=== PATIENT | male | born 1940 | race Caucasian/White ===

== ENCOUNTER 2017-01-15 14:25 | Inpatient (IN) | payer MEDICARE, OTHER ==
[~2017-01-15] VITALS: Ht 182.9 cm; Wt 97.4 kg
--- NOTE | ~2017-01-15 | CON ---
PATIENT'S NAME: CONSTANZA MOTT [facility] AGE: 76 Y [address] ROOM: [place] [address] LOCATION: [facility] ADMIT DATE: 01/15/2017 Consultation DISCHARGE DATE: FAMILY PHYSICIAN: Quintin Hawkins MD ATTENDING PHYSICIAN: Lana NICHOLAS REFERRING PHYSICIAN: MARCO A CASTELLON MD ORTHOPEDIC CONSULTATION CHIEF COMPLAINT: Left hip and groin pain. HISTORY OF PRESENT ILLNESS: Mr. Mott is a pleasant 76-year-old gentleman, who presents after a fall from a step stool at home, complaining of left hip and groin pain. The patient reports he was reaching for some objects from a cabinet overhead. He removed approximately half the objects and inadvertently lost balance and fell onto his left side. He denies any loss of consciousness or dizziness. At that time, he was unable to get up. He reported immediate pain and discomfort in left hip and groin. Aggravating factors included attempting to stand, manipulation of the limb, or movement of the hip. Alleviating factors include rest, ice, elevation, and immobilization. He was brought to the Emergency Room here at [facility], and he was seen and evaluated. He was diagnosed with a left hip fracture. I was consulted by Dr. Castellon, another orthopedic surgeon, for definitive orthopedic care. Currently, the patient denies any constitutional symptoms such as fever, chills, night sweats. He also denies any dizziness, chest pain, shortness of breath, blurred vision, nausea, vomiting, or diarrhea. The patient otherwise reports that he is in fairly good health. REVIEW OF SYSTEMS: A 10-point review of system otherwise mentioned above in the HPI. The rest is negative. PAST MEDICAL HISTORY: Includes a benign prostatic hyperplasia, hypertension, hypercholesterolemia, COPD. PAST SURGICAL HISTORY: None. SOCIAL HISTORY: The patient denies any alcohol, tobacco, or illicit drug use. He lives at home with his . He is an independent ambulator at baseline. The patient had a history of one pack per day smoker for 40 years. He quit approximately 10 years ago. PATIENT'S NAME: CONSTANZA MOTT [facility] AGE: 76 Y [address] ROOM: [place] [address] LOCATION: [facility] ADMIT DATE: 01/15/2017 Consultation DISCHARGE DATE: FAMILY PHYSICIAN: Quintin Hawkins MD ATTENDING PHYSICIAN: Lana NICHOLAS FAMILY HISTORY: Includes hypertension and hypercholesterolemia on both sides of his family. ALLERGIES: NO KNOWN DRUG ALLERGIES. MEDICATIONS: 1. A cholesterol medication. 2. A blood pressure pill. PHYSICAL EXAMINATION: VITAL SIGNS: The patient is 6 feet tall, weighs 77.3 kg, blood pressure is 153/72, pulse 70, respiratory rate 16, temperature is 96.9, SpO2 of 94% on room air. GENERAL: The patient is awake, alert, and oriented x3. He is in no acute distress. He is actively conversing with me at the bedside. HEENT: Normocephalic and atraumatic. Extraocular movements are intact. PERRLA. Moist mucous membranes. Oropharyngeal airway is clear. NECK: Supple. Trachea is in the midline. CARDIOVASCULAR: Regular rate and rhythm. CHEST: Normal symmetric respirations observed bilaterally. ABDOMEN: Soft, nontender, nondistended. SKIN: Dry. MUSCULOSKELETAL: Left lower extremity: Focal examination of the patient's left lower extremity reveals that he is grossly neurologically intact distally. Compartments of thigh, leg, and foot are soft. There is palpable dorsalis pedal and posterior tibial pulses. There is good capillary refill in the toes. The patient is actively able to dorsiflex and plantar flex the ankle. The left lower extremity is shortened and externally rotated compared to the contralateral limb. There is a positive log roll test on this side. LABORATORY DATA: CBC was performed and hemoglobin is 13.1, hematocrit is 40, white blood cell count is 4.2, and platelet count is 144. A chemistry-7 reveals sodium 141, potassium 4.2, chloride 106, CO2 of 30, BUN of 22, creatinine 1.3, glucose of 166. Coagulation profile reveals a PT of 10.5, INR of 1.0, and PTT of 25. IMAGING: Plain radiographs of the left hip reveal evidence of a displaced femoral neck fracture. A subsequent CT scan of the abdomen and pelvis reveals evidence of a displaced fracture of the left femoral neck. IMPRESSION: Left displaced fracture of the femoral neck. PATIENT'S NAME: CONSTANZA MOTT [facility] AGE: 76 Y [address] ROOM: [place] [id number] LOCATION: [facility] ADMIT DATE: 01/15/2017 Consultation DISCHARGE DATE: FAMILY PHYSICIAN: Quintin Hawkins MD ATTENDING PHYSICIAN: Lana NICHOLAS PLAN: I had a long discussion with the patient regarding his left hip. He sustained a hip fracture. I am recommending a left hip hemiarthroplasty procedure. I have discussed the risks, benefits, and alternatives pursuing surgical intervention with the patient in detail. I have discussed the risks of anesthesia, infection, bleeding, and/or injury to neurovascular structures. The patient will be bedrest for now. We will make every effort to control his pain overnight. We will hold DVT prophylaxis, may be mechanical prophylaxis for now. We will hold Ancef inspector balance wheel motion for the OR. We will ask the Hospitalist to clear the patient medically in preparation for surgery tomorrow. I have answered all the patient and the patient's family's questions today at the bedside to their satisfaction. MD ISABEL KAISER/modl /[id number] d: 01/15/17 2317 t: 01/16/17 0741, CONSULTATION REPORT
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
--- NOTE | ~2017-01-15 | DS ---
PATIENT'S NAME: TIERA [facility] AGE: 76 Y [address] ROOM: [place] [address] LOCATION: [facility] ADMIT DATE: 01/15/2017 Discharge Summary DISCHARGE DATE: 01/20/2017 FAMILY PHYSICIAN: Quintin Hawkins MD ATTENDING PHYSICIAN: Lana Wu DISCHARGE DIAGNOSES: 1. Left displaced femoral neck fracture. 2. Chronic obstructive pulmonary disease. 3. Essential hypertension. 4. Benign prostatic hyperplasia. PRINCIPLE PROCEDURE: Left hip hemiarthrosis by Dr. Richard on 01/16/2017. REASON FOR ADMISSION: Hip fracture and pain. VITALS: White count, hemoglobin, and platelets were normal preoperatively. His hemoglobin did not drop below 11.8. His urine was benign. Electrolytes showed normal sodium and potassium. BUN and creatinine were normal and actually better before he left than when he arrived. X-ray showed a complete oblique fracture with slight bone displacement at the inferior aspect of the left femoral neck. Chest x-ray showed emphysematous change in the lungs, scarring and fibrosis with aortic atherosclerosis. He had proximal pulmonary artery prominence suggesting pulmonary hypertension. X- ray postop showed a well-positioned intact left hip arthroplasty. HOSPITAL COURSE: This is one of steady improvement. He is transferred to a [facility]. Has one assist with a walker. He is to get OT and PT there for strengthening and gait training. MEDICATIONS: Per med nursing recon form. DIET: Ad liv. ACTIVITY: Per PT and OT. FOLLOWUP: With Dr. Hawkins in 1 to [address] Richard per Dr. Richard. Note that discharge preparations took greater than 30 minutes. ISREAL COVINGTON MD [facility] AGE: 76 Y [address] ROOM: [place] [address] LOCATION: [facility] ADMIT DATE: 01/15/2017 Discharge Summary DISCHARGE DATE: 01/20/2017 FAMILY PHYSICIAN: Quintin Hawkins MD ATTENDING PHYSICIAN: Lana Wu CCJ/modl /[id number] d: 01/30/17937 t: 02/01/17 1739, DISCHARGE SUMMARY
--- NOTE | ~2017-01-15 | OR ---
PATIENT'S NAME: TIERA [facility] AGE: 76 Y [address] ROOM: [place] [address] LOCATION: [facility] ADMIT DATE: 01/15/2017 OR/Procedure Report DISCHARGE DATE: FAMILY PHYSICIAN: Quintin Hawkins MD ATTENDING PHYSICIAN: Lana NICHOLAS SURGEON: David Richard MD FINANCIAL REPORT SERVICE SALES AGENT: Malik Garrett PA-C DATE OF PROCEDURE: 01/16/2017 PREOPERATIVE DIAGNOSIS: Left displaced femoral neck fracture. POSTOPERATIVE DIAGNOSIS: Left displaced femoral neck fracture. PROCEDURE PERFORMED: Left hip hemiarthroplasty. ANESTHESIA: Spinal anesthesia. FLUIDS: See Anesthesia report. ESTIMATED BLOOD LOSS: 150 mL. SPECIMENS: None. COMPLICATIONS: None. DISPOSITION: Stable, in PACU. COUNTS: All counts were correct. IMPLANTS: Kike left hip hemiarthroplasty system with a size 8 Accolade II stem; size 28, 0 offset femoral head; and size 53 mm outer diameter bipolar component. INDICATIONS: Mr. Mott is a pleasant 76-year-old gentleman who underwent the noted procedure above. The risks, benefits, and alternatives to pursuing surgical intervention were discussed with the patient and his family in detail. He elected to proceed with surgery. Anesthesia was consulted for their perioperative evaluation of the patient. I marked the left hip, indicating the correct surgical site. DESCRIPTION OF PROCEDURE: The patient was brought from the holding area to the operating room. A time-out was performed. The patient was positioned in the right lateral decubitus position with the left hip exposed. The left lower extremity was then prepped and draped in a sterile fashion. PATIENT'S NAME: TIERA [facility] AGE: 76 Y [address] ROOM: [place] [id number] LOCATION: [facility] ADMIT DATE: 01/15/2017 OR/Procedure Report DISCHARGE DATE: FAMILY PHYSICIAN: Quintin Hawkins MD ATTENDING PHYSICIAN: Lana NICHOLAS Preoperative antibiotics were administered for perioperative prophylaxis. A final time-out was performed. A posterior incision to access the hip was made using a 15 blade knife. I dissected through skin and subcutaneous tissue. I identified the fascia. I sharply incised the fascia and retracted using a Charnley retractor. Using a Bovie electrocautery device, I removed the posterior capsule and short external rotators in the posterior aspect of the greater trochanter. I tagged them with Ethibond suture to reattach later. I identified the fracture site. I reduced the template to make my femoral neck cut. The fracture was transcervical in nature, though it extended to just proximal to the level of the lesser trochanter. I used an oscillating saw to perform my femoral neck cut. I then used a corkscrew to remove the femoral head and sized it. I used a femoral canal finder to cannulate the intramedullary canal. I then sequentially broached up to a size 8 femur. I trialed off this. All the trial componentry was subsequently removed, and the wound was then copiously irrigated with a normal sterile saline solution via pulsatile lavage. I then placed my final femoral component. I then placed my inner head and bipolar head. With my physician surgical dental assistant assisting with the reduction maneuver, I reduced the hip. The hip was taken through range of motion. I achieved full extension to approximately 140 degrees of hip flexion and 60 degrees of internal rotation prior to surgical dislocation. I measured the limb lengths and found them to be equal. I then reattached the short external rotators and posterior capsule by a bone tunnel that was drilled, and the Ethibond suture was placed, and I closed over this. I then repaired them to the posterior aspect of the greater trochanter. The hip again was taken through range of motion and deemed stable. I then closed the capsule using a #2 Stratafix barbed suture to approximate the fascia. I then used 0 Stratafix suture to approximate the deeper subcutaneous tissue, followed by 0 and 2-0 Vicryl sutures to approximate the subcutaneous tissue and dermis, followed by Prineo to approximate the skin. A sterile Mepilex dressing was placed on the hip. The patient was then transferred from the operating table onto the hospital bed. An abduction pillow was placed between the legs. He was brought to the recovery room in stable condition. There were no intraoperative complications noted. Of note, my PA, Malik Garrett PA-C, played an integral role in the intraoperative care of this patient. This included preoperative positioning, PATIENT'S NAME: CONSTANZA MOTT [facility] AGE: 76 Y [address] [address] LOCATION: [facility] ADMIT DATE: 01/15/2017 OR/Procedure Report DISCHARGE DATE: FAMILY PHYSICIAN: Quintin Hawkins MD ATTENDING PHYSICIAN: Lana NICHOLAS intraoperative expert retraction, and closing and dressing functions. IMPRESSION: The patient is status post the noted procedure above. PLAN: The patient will be weightbearing as tolerated on the left lower extremity with hip flexion precautions to 90 degrees. Postoperative pain control will be as ordered. DVT prophylaxis will be in the form of Lovenox. Postoperative antibiotics will be ordered per routine. The Hospitalist and Pulmonology Service will continue to manage the patient's concomitant medical comorbidities. Physical Therapy and Occupational Therapy will be consulted for early ambulation and prevention of deconditioning. I will continue to follow the patient closely in the postoperative period. MD ISABEL KAISER/modl /[id number] d: 01/16/17 1327 t: 01/16/17 1431, OPERATIVE SUMMARY
--- NOTE | ~2017-01-15 | PUL ---
PATIENT'S NAME: CONSTANZA MOTT [facility] AGE: 76 Y [address] ROOM: [address] [address] LOCATION: [facility] ADMIT DATE: 01/15/2017 Pulmonary DISCHARGE DATE: 01/20/2017 FAMILY PHYSICIAN: Quintin Hawkins MD ATTENDING PHYSICIAN: Lana Wu NAME OF PROCEDURE: Overnight Pulse Oximetry DATE OF PROCEDURE: January 17, 2017 REASON FOR EXAM: Nocturnal hypoxemia RESULTS: The test was performed on room air. The recording time was 9 hours, 21 minutes, and 52 seconds.; the total valid sampling was to same. The highest pulse was 97, lowest pulse was 57 with a mean pulse of 72. The highest SpO2 was 96%, lowest SpO2 was 81% with a mean SpO2 of 90.1%. The patient had saturation below 88% for a total of 12 minutes. The desaturation event index was 6.6. PHYSICIAN INTERPRETATION: The patient has evidence of significant nocturnal hypoxia and would qualify for supplemental oxygen as per Medicare criteria. Sleep study would be recommended if clinically indicated. MD WM MYERS/jaiden /[id number] dtt: 01/31/17 1741 , KENDALL KOEHLER dtd: 01/25/17 0816
--- NOTE | ~2017-01-15 | HP ---
PATIENT'S NAME: TIERA [facility] AGE: 76 Y [address] ROOM: [place] [id number] LOCATION: [facility] ADMIT DATE: 01/15/2017 History & Physical DISCHARGE DATE: FAMILY PHYSICIAN: Quintin Hawkins MD ATTENDING PHYSICIAN: Lana NICHOLAS DATE OF SERVICE: CHIEF COMPLAINT: Left hip fracture. HISTORY OF PRESENT ILLNESS: The patient is a 76-year-old gentleman with past medical history of hypertension, COPD, and BPH who presents here with left hip fracture status post mechanical fall. The patient reports that he was using a step stool to get some article from the cupboard when he accidentally missed the step and experienced a fall. The patient reports that he could not stand up and walk. EMS was called and he was brought in for further evaluation. The patient denies any dizziness, shortness of breath, chest pain, or palpitation during this event and reports that this is due to his misstep. The patient has a history of COPD and stopped smoking 10 years ago. The patient reports that he gets dyspnea on exertion when he exerts himself. However, he denies orthopnea, chest pain, palpitation, productive cough, fever, chills, nausea, and vomiting. The patient reports that he has a history of lightheadedness in the past and was seen by a primary care physician for that and thinks that this is secondary to his medications use especially his beta-samir. However, currently he denies any other dizziness or dizziness prior to his fall. MEDICAL HISTORY: COPD, BPH, hypertension. SURGICAL HISTORY: 1. Left kidney nephrectomy status post trauma. 2. Cholecystectomy. 3. Colovesicular fistula repair. FAMILY HISTORY: Mother had colon cancer. Father had history of heart disease. SOCIAL HISTORY: He stopped smoking 10 years ago. PATIENT'S NAME: [facility] AGE: 76 Y [address] ROOM: [address] [address] LOCATION: [facility] ADMIT DATE: 01/15/2017 History & Physical DISCHARGE DATE: FAMILY PHYSICIAN: Quintin Hawkins MD ATTENDING PHYSICIAN: Lana NICHOLAS Reports that he drinks 1 or 2 glasses of whiskey or bourbon during night. Denies any history of withdrawal symptoms. MEDICATIONS: 1. Propranolol extended release 120 mg p.o. daily. 2. Pravastatin 80 mg p.o. daily. 3. Flomax 0.4 mg p.o. daily. 4. Proscar 5 mg p.o. daily. REVIEW OF SYSTEMS: All systems have been reviewed and are negative except for what I mentioned in the HPI. PHYSICAL EXAMINATION: VITAL SIGNS: Temperature 97.3, blood pressure 153/72, heart rate of 70, respiratory rate 16, and saturating 94% on room air. GENERAL APPEARANCE: The patient is alert and awake, in no acute distress. EYES: Extraocular muscle intact. NOSE: No nasal discharge. HEAD: Normocephalic, atraumatic. EARS: No ear discharge. MOUTH: Moist oral mucosa. CHEST: Clear to auscultation bilaterally. HEART: Regular rate and rhythm. No murmurs, rubs, or gallops. ABDOMEN: Soft, nontender, and nondistended. Bowel sounds present. SKIN: Warm to touch. MILLWRIGHT APPRENTICE: The patient alert and awake. Motor and sensory grossly intact. LABORATORY DATA: White blood cell 4.2, hemoglobin 13.1, platelet of 144. BUN of 22, creatinine of 1.3. Sodium of 141, potassium of 4.2, calcium of 8.8. INR of 1. IMAGING DATA: EKG shows normal sinus rhythm with T wave inversion in I, aVL, and ST changes with mild depression from V4 to V6. ASSESSMENT AND PLAN: 1. Left hip fracture secondary to mechanical fall. The patient has a history of some dyspnea on exertion and EKG showing possible lateral ischemic ST changes. Thus, due to these findings, we will consult Cardiology. We will acquire echocardiogram for further investigation. I discussed the case with Dr. Bone with Cardiology. The patient to be seen by Cardiology. We will continue patient's propranolol and statin. PATIENT'S NAME: CONSTANZA MOTT [facility] AGE: 76 Y [address] ROOM: [id number] [place] [id number] LOCATION: [facility] ADMIT DATE: 01/15/2017 History & Physical DISCHARGE DATE: FAMILY PHYSICIAN: Quintin Hawkins MD ATTENDING PHYSICIAN: Lana NICHOLAS Also, discussed with Dr. Cruz who is the orthopedic who will be seeing the patient once the patient is cleared from a cardiac standpoint. 2. Chronic obstructive pulmonary disease, stable. To have DuoNeb as needed. 3. Hypertension, stable. Continue medication. 4. 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 Creatinine 1.3. 5. BPH. Continue Proscar and Flomax. Greater than 70 minutes was spent on patient care. Greater than 50% of the time spent on direct patient care. Case was discussed with Dr. Cruz and Dr. Bone. Code status discussed on admission. Code status full code. BERNADETTEWE MD DAVEY NICHOLAS/oniel /[id number] D: T: [id number] HISTORY & PHYSICAL
--- NOTE | ~2017-01-15 | ECHO ---
Transthoracic Echocardiography Report (TTE) Demographics Patient Name CONSTANZA MOTT Date of Study 01/15/2017 Patient Number [id number] Visit Number [id number] Date of 1940 Room Number G3314 Accession Number [id number] Gender Male Age 76 year(s) Referring Ross Smith Stone Derrickman And Rigger Physician MD Michael Stone MD Physician Interpreting Lizandro Garg MD Sybase Developer Physician Supervising Ordering Physician Michael Stone MD, MD/P Nurse Stress Weight And Test Bar Clerk Conclusions Contractility Score Summary Normal Left Ventricular contractility was noted. Summary The estimated left ventricular ejection fraction is 55-60%. Mild concentric left ventricular hypertrophy. Diastolic assessment reveals Grade II pseudonormal diastolic function . Mildly dilated right ventricle. The right atrium is mildly dilated. Mild calcification of the mitral valve. The aortic valve is mildly sclerotic. There is moderate aortic regurgitation by color Doppler. Procedure Type of Study TTE procedure:2D Echocardiogram. Procedure Date Date: 01/15/2017 Start: 04:39 PM Study Location: ER Technical Quality: Adequate visualization Indications:Preop cardiac evaluation. Appropriate Use Criteria: 9 Patient Status: STAT HR: 73 bpm BP: 170/76 mmHg M-Mode/2D Measurements LV Diastolic Dimension: 4.86 cm LV Systolic Dimension: 2.81 cm LV Septum Diastolic: 1.5 cm LV PW Diastolic: 1.21 cm AO Root Dimension: 3 cm Cardiac Output: 4.15 l/min AV Cusp Separation: 1.3 cm RV Diastolic Dimension: 2.4 cm LA Dimension: 2.6 cm LVOT: 2 cm RV Base: 2.8 cm LVOT VTI: 18.1 cm RV Mid: 3.67 cm LV Stroke volume: 56.83 ml RV Length: 5.7 cm TAPSE: 2.23 cm TDI-S': 14.8 cm/s Doppler Measurements AV Peak Velocity: 1.14 m/s MV Peak E-Wave: 1.04 m/s AV Peak Gradient: 5.2 mmHg MV Peak A-Wave: 0.62 m/s AV Mean Gradient: 3 mmHg MV E/A Ratio: 1.69 LVOT Peak Velocity: 0.87 m/s MV P1/2t: 67 msec AV P1/2t: 474 msec PV Peak Velocity: 0.87 m/s E' Septal Velocity: 0.04 m/s PV Peak Gradient: 3.01 mmHg E' Lateral Velocity: 0.03 m/s A' Septal Velocity: 0.11 m/s A' Lateral Velocity: 0.12 m/s Findings Left Ventricle Mild concentric left ventricular hypertrophy. Right Ventricle Mildly dilated right ventricle. Left Atrium Normal left atrial size. Right Atrium The right atrium is mildly dilated. IVC measures 1.16 cm with inspiratory collapse. Mitral Valve Mild calcification of the mitral valve. Aortic Valve The aortic valve is mildly sclerotic. There is moderate aortic regurgitation by color Doppler. Tricuspid Valve Normal tricuspid valve structure and function. Pulmonic Valve Normal pulmonic valve structure and function. Pericardial Effusion No evidence of pericardial effusion. Miscellaneous Visualized portions of the aortic root and ascending aorta appear normal in size. Pleural Effusion No evidence of pleural effusion. Contractility Score LV regional wall motion:(0-Non visualized 1-Normal 2-Hypokinesis 3-Akinesis 4-Dyskinesis 5-Aneurysm) Signature dtt: [place] Bone (cardio) dtd: 01/15/17 1639 Physician Self Edit
--- NOTE | ~2017-01-15 | ER ---
[facility] AGE: 76 Y [address] ROOM: [place] [address] LOCATION: [facility] ADMIT DATE: 01/15/2017 ER/Outpatient Report DISCHARGE DATE: FAMILY PHYSICIAN: Quintin Hawkins MD ATTENDING PHYSICIAN: Lana WU Time of Arrival: 1424 hours. Time of Evaluation: 1424 hours. CHIEF COMPLAINT: Left hip pain. HISTORY OF PRESENT ILLNESS: The patient is a 76-year-old male, who presents to the emergency department today with a chief complaint of left hip pain. He reports he fell about 1 to 2 steps as he was up on the step stool trying to put on object overhead. He landed on a carpeted floor on his left side. He is unable to walk. He denies any head injury. No loss of consciousness. Denies any neck or back pain. No headache. The patient's pain is currently 3/10 in severity. It is sharp. It is worse with movement. PAST MEDICAL HISTORY: COPD, hypertension, BPH. PAST SURGICAL HISTORY: Laparoscopic sigmoid colectomy. SOCIAL HISTORY: The patient smoked one pack per day for 40 years. Quit 10 years ago. Denies any alcohol or illicit drug use. ALLERGIES: NO KNOWN DRUG ALLERGIES. MEDICATIONS: Please see list. PRIMARY CARE DOCTOR: Dr. Hawkins. REVIEW OF SYSTEMS: All systems are reviewed by myself and are negative with the exception of those discussed in the HPI and past medical history. PHYSICAL EXAMINATION: PATIENT'S NAME: [facility] AGE: 76 Y [address] ROOM: [place] [address] LOCATION: [facility] ADMIT DATE: 01/15/2017 ER/Outpatient Report DISCHARGE DATE: FAMILY PHYSICIAN: Quintin Hawkins MD ATTENDING PHYSICIAN: Lana WU VITAL SIGNS: Weight 97.3 kg, blood pressure 153/72, pulse 70, respiratory rate 16, temperature 96.9, oxygen saturation 94% on room air. GENERAL: The patient is a 76-year-old male, who appears stated age, in no acute distress at this time. HEENT: Normocephalic, atraumatic. Pupils are equal, round, and reactive to light. NECK: Supple. There is no nuchal rigidity. CARDIOVASCULAR: Regular rate and rhythm. No murmurs, rubs, or gallops. LUNGS: Clear to auscultation bilaterally. No wheezes, rales, or rhonchi. ABDOMEN: Soft, nontender, and nondistended. No rebound, rigidity, or guarding. MUSCULOSKELETAL: The patient has tenderness to palpation of left hip. He is able to wiggle his toes. Sensation is intact. 2/4 pulses DP and PT, which are equal bilaterally. SKIN: Warm and dry. LABORATORY DATA AND X-RAYS: A 2-view x-ray of the left hip as well as pelvis obtained does reveal a femoral neck fracture of the left. Chest x-ray shows no acute process. EKG is obtained, is interpreted by myself at 1511 hours shows sinus rhythm with a rate of 70, normal axis, normal intervals. No ST elevation, ST depression. There are some nonspecific T-wave inversions. CBC is unremarkable. Coags are normal. Renal panel is unremarkable. Prealbumin is 28. IMPRESSION: 1. Acute closed left femoral neck fracture. 2. Initial visit. COURSE: The patient was brought was back to the examination room. Seen and evaluated by myself. An IV is established. Laboratory analysis and imaging are obtained as described above. The patient refused any pain medicine at this time. I have discussed the results with the patient. I have contacted Dr. Cruz with Orthopedic Surgery. He has requested hospitalist admission. I have discussed the case with Dr. Wu, who does agree to accept the patient for further evaluation, treatment, and management. DISPOSITION: The patient is admitted under the care of the Hospitalist Service in conjunction with Dr. Cruz for Orthopedic Surgery in stable condition. KELLI REYES DO PATIENT'S NAME: CONSTANZA MOTT [facility] AGE: 76 Y [address] ROOM: [address] [place] [id number] LOCATION: [facility] ADMIT DATE: 01/15/2017 ER/Outpatient Report DISCHARGE DATE: FAMILY PHYSICIAN: Quintin Hawkins MD ATTENDING PHYSICIAN: Lana WU/jamirl /[id number] d: 01/15/172104 t: 01/16/1709, OUTPATIENT REPORT
[2017-01-15 15:07] LABS: BASOPHIL % 0.2 %; EOSINOPHIL # 0.1 K/uL (0.0-0.5); EOSINOPHIL % 3.3 %; HEMOGLOBIN 13.1 g/dL (11.0-16.0); IMMATURE GRANULOCYTE % 0.5 %; LYMPHOCYTE # 0.9 K/uL (0.8-4.0); LYMPHOCYTE % 20.5 %; MCH 30.6 pg (27.0-34.0); MCHC 32.8 gm/dL (32.0-36.5); MCV 93.5 fl (83.0-98.0); MONOCYTE # 0.2 K/uL (0.0-1.0); MONOCYTE % 4.1 %; MPV 9.9 fl (9.4-12.4); NEUTROPHIL % 71.4 %; NRBC % 0 /100WBC (0-0.00); PLATELET COUNT 144 K/uL (150-450); RBC 4.28 M/uL (3.50-5.50); RDW-CV 12.6 % (11.9-14.6); WBC 4.2 K/uL (4.0-11.0)
[2017-01-15 15:20] LABS: PROTIME 10.5 SECONDS (9.8-11.4); PTT 25 SECONDS (25-32)
[2017-01-15 15:24] LABS: ALBUMIN 3.2 gm/dL (3.5-5.0); ANION GAP 9.2 (10.0-19.0); CALCIUM 8.8 mg/dL (8.5-10.5); CREATININE 1.3 mg/dL (0.6-1.3); PHOSPHORUS 2.3 mg/dL (2.5-4.9); POTASSIUM 4.2 mMol/L (3.7-5.1)
[2017-01-15 16:01] LABS: BILIRUBIN URINE NEGATIVE (NEGATIVE); BLOOD URINE NEGATIVE /UL (NEGATIVE); COLOR URINE YELLOW (YELLOW); GLUCOSE URINE NEGATIVE (NEGATIVE); KETONE URINE NEGATIVE (NEGATIVE); LEUKOCYTES URINE 25 /UL (NEGATIVE); NITRITE URINE NEGATIVE (NEGATIVE); PH URINE 6.5 (4.0-8.0); PROTEIN URINE 30 mg/dL (NEGATIVE); SPEC GRAVITY URINE 1.015 (1.003-1.035); TURBIDITY URINE CLEAR (CLEAR); UROBILINOGEN URINE 1 mg/dL (NORMAL)
[2017-01-15 16:10] LABS: AMORPHOUS URINE 1+ (NEGATIVE); BACTERIA URINE NEGATIVE (NEGATIVE); EPITHELIAL URINE 0-2 #/HPF (NEGATIVE); RBC URINE RARE #/HPF (NEGATIVE); WBC URINE 0-2 #/HPF (NEGATIVE)
[2017-01-15 21:21] LABS: BILIRUBIN URINE NEGATIVE (NEGATIVE); BLOOD URINE NEGATIVE /UL (NEGATIVE); COLOR URINE YELLOW (YELLOW); GLUCOSE URINE NEGATIVE (NEGATIVE); KETONE URINE NEGATIVE (NEGATIVE); LEUKOCYTES URINE NEGATIVE /UL (NEGATIVE); NITRITE URINE NEGATIVE (NEGATIVE); PH URINE 6.5 (4.0-8.0); PROTEIN URINE NEGATIVE (NEGATIVE); TURBIDITY URINE CLEAR (CLEAR); UROBILINOGEN URINE NORMAL (NORMAL)
[2017-01-16 04:41] LABS: ANION GAP 10.2 (10.0-19.0); CALCIUM 8.7 mg/dL (8.5-10.5); CREATININE 1.1 mg/dL (0.6-1.3); POTASSIUM 4.2 mMol/L (3.7-5.1); TOTAL BILIRUBIN 0.5 mg/dL (0.0-1.5); TOTAL PROTEIN 6.1 g/dL (6.0-8.4)
[2017-01-17 05:40] LABS: HEMATOCRIT 36.8 % (37.0-53.0); HEMOGLOBIN 12.3 g/dL (11.0-16.0)
[2017-01-18 05:25] LABS: HEMATOCRIT 35.9 % (37.0-53.0); HEMOGLOBIN 11.8 g/dL (11.0-16.0)
== END 2017-01-20 14:00 | DRG 470 ==
LOC: GACC 14:25 → G3N 16:57
PROVIDERS: Emergency Medicine; Orthopaedic Surgery Adult Reconstructive Orthopaedic Surgery; ADMIT Internal Medicine
PROC: 0SRS01Z Replacement of Left Hip Joint, Femoral Surface with Metal Synthetic Substitute, Open Approach (ICD-10-PCS; principal; 2017-01-16)
DX: S72.002A Fracture of unspecified part of neck of left femur, initial encounter for closed fracture (principal); J44.9 Chronic obstructive pulmonary disease, unspecified; N40.0 Benign prostatic hyperplasia without lower urinary tract symptoms; W17.89XA Other fall from one level to another, initial encounter; Z86.39 Personal history of other endocrine, nutritional and metabolic disease; Z87.891 Personal history of nicotine dependence; I12.9 Hypertensive chronic kidney disease with stage 1 through stage 4 chronic kidney disease, or unspecified chronic kidney disease; N18.9 Chronic kidney disease, unspecified; Z90.5 Acquired absence of kidney; E78.00 Pure hypercholesterolemia, unspecified
CPT/HCPCS: C1776; J0690; J1650; J2250; J2270; J2405; J7030; J7050

== ENCOUNTER → 2017-01-15 | Outpatient (CLI) | payer MEDICARE, OTHER ==
[~2017-01-15] MED LIST: ASPIRIN325 MG PO; BACTRIM DS1 TAB PO; FLOMAX0.4 MG PO; INDERAL XL120 MG PO; NORCO 5-325 MG1 TAB PO; PRAVASTATIN SOD80 MG PO; PROSCAR5 MG PO
== END | disposition disaster alternative care site (69) ==
LOC: GAMB 14:03
DX: S79.912A Unspecified injury of left hip, initial encounter (principal); I10 Essential (primary) hypertension; M25.552 Pain in left hip; R11.0 Nausea
CPT/HCPCS: A0425; A0427; J2405; J7030